=== PATIENT | male | born 1975 | race Caucasian/White ===

== ENCOUNTER 2025-02-10 03:05 | Emergency (ER) | payer SELFPAY ==
[~2025-02-10] VITALS: Ht 175.3 cm; Wt 104.3 kg
[2025-02-10] MEDS ORDERED: ACETAMINOPHEN 325 MG TABLET ONE (03:39)
[2025-02-10] MEDS: ACETAMINOPHEN 325 MG TABLET PO ONE (03:40)
[2025-02-10 03:43] LABS: APPEARANCE,URINE CLEAR (CLEAR); BILIRUBIN,URINE NEGATIVE (NEGATIVE); BLOOD, URINE NEGATIVE Ery/uL (NEGATIVE); COLOR,URINE YELLOW (YELLOW); KETONES,URINE NEGATIVE (NEGATIVE); LEUKOCYTE ESTERASE ,URINE NEGATIVE (NEGATIVE); NITRITE, URINE NEGATIVE (NEGATIVE); PROTEIN,URINE NEGATIVE (NEGATIVE); UGLUCOSE NEGATIVE (NEGATIVE)
[2025-02-10 05:35] VITALS: BP 135/79; TEMP 98.3; O2SAT 99
== END 2025-02-10 05:35 | disposition home or self-care (01) ==
LOC: ER 03:10
DX: S30.22XA Contusion of scrotum and testes, initial encounter (principal); W50.2XXA Accidental twist by another person, initial encounter; Y93.89 Activity, other specified; Y92.098 Other place in other non-institutional residence as the place of occurrence of the external cause; Y99.8 Other external cause status
CPT/HCPCS: 76870-TC